=== PATIENT | female | born 1950 | race Caucasian/White ===

== ENCOUNTER → 2017-05-18 | Outpatient (REF) | payer MEDICARE, BC | LOC: M LAB REF 17:15 | PROVIDERS: ATTEND Internal Medicine Nephrology | DX: I10 Essential (primary) hypertension (principal); N18.2 Chronic kidney disease, stage 2 (mild) ==

== ENCOUNTER → 2017-07-20 | Outpatient (REF) | payer MEDICARE, BC ==
[2017-07-20 19:28] LABS: COMPLEMENT C3 131 MG/DL (90-180); COMPLEMENT C4 30.8 MG/DL (10-40); TOTAL PROTEIN 7.6 GM/DL (6.4-8.2)
[2017-07-22 10:50] LABS: ALBUMIN 4.37 GM/DL (3.29-5.55); ALBUMIN % 57.5 % (55.8-66.1); GAMMA GLOBULIN % 15.5 % (11.1-18.8)
[2017-07-23 00:08] LABS: FREE KAPPA LIGHT CHAINS SERUM 28.8 mg/L (3.3-19.4); FREE LAMBDA LIGHT CHAINS SERUM 18.3 mg/L (5.7-26.3); KAPPA/LAMBDA RATIO SERUM 1.57 (0.26-1.65)
== END ==
LOC: M LAB REF 17:04
PROVIDERS: ATTEND Internal Medicine Nephrology
DX: N18.3 Chronic kidney disease, stage 3 (moderate) (principal); R80.9 Proteinuria, unspecified

== ENCOUNTER 2018-07-27 08:14 | Outpatient (RCR) | payer MEDICARE, BC, OTHER | END 2018-08-11 | LOC: M PT 08:14 | DX: L03.116 Cellulitis of left lower limb (principal) | CPT/HCPCS: 97163 ==